=== PATIENT | female | born 1935 | race Caucasian/White ===

== ENCOUNTER → 2016-11-30 | Outpatient (CLI) | payer MEDICARE ==
[2016-11-30 16:37] LABS: ALBUMIN 3.8 GM/DL (3.2-5.2); ALBUMIN/GLOBULIN RATIO 1.23 (1.00-1.93); ALKALINE PHOSPHATASE 91 U/L (45-117); ALT/SGPT 33 U/L (12-78); ANION GAP 11 MEQ/L (8-16); AST/SGOT 17 U/L (15-37); BILIRUBIN,TOTAL 0.4 MG/DL (0.2-1.0); BLOOD UREA NITROGEN 25 MG/DL (7-18); CALCIUM LEVEL 8.8 MG/DL (8.8-10.2); CARBON DIOXIDE LEVEL 27 MEQ/L (21-32); CHLORIDE LEVEL 105 MEQ/L (98-107); CREATININE FOR GFR 0.87 MG/DL (0.55-1.02); GLOMERULAR FILTRATION RATE > 60.0 (>39); GLUCOSE, FASTING 106 MG/DL (83-110); POTASSIUM SERUM 4.3 MEQ/L (3.5-5.1); SODIUM LEVEL 143 MEQ/L (136-145); TOTAL PROTEIN 6.9 GM/DL (6.4-8.2)
--- NOTE | 2016-11-30 21:31 | REP ---
Clinical: Preoperative assessment . Comparison: None . Technique: PA and lateral. Findings: The mediastinum and cardiac silhouette are normal. The lung dowd are clear and without acute consolidation, effusion, or pneumothorax. The skeletal structures are intact and normal. Impression: 1. No acute cardiopulmonary process. Signed by Juwan Garner MD 11/30/2016 09:22 P
--- NOTE | 2016-12-01 17:24 | ECGEPIP ---
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
== END ==
LOC: M LAB 15:08
PROVIDERS: ATTEND Ophthalmology
DX: Z01.818 Encounter for other preprocedural examination (principal); H25.12 Age-related nuclear cataract, left eye

== ENCOUNTER → 2016-12-22 | Day surgery (SDC) | payer MEDICARE ==
[~2016-12-22] VITALS: Ht 152.4 cm; Wt 68.0 kg
[~2016-12-22] MED LIST: ACETYLCHOLINE OPHTH SOLN 1% 2ML As Ordered ONE; ACETYLCHOLINE OPHTH SOLN 1% 2ML XX ONE; ALIG4CAP PO; ASPI81TA85 PO; BALANCED SALT IRRIGATION SOL 500ML GLASS BOTTLE (FOR OR EYE COMPOUND) IR ONE; BALANCED SALT IRRIGATION SOLUTION 500ML BAG (FOR OR EYE MACHINE) As Ordered ONE; CALCCHW8 PO; CEFUROXIME 1MG/0.1ML INTRACAMERAL INJ As Ordered ONE; CLAR10CA3 PO; COLA100C PO; FLUN25SP; GLUC500C5 PO; HEALON DUET (HEALON 10MG/ML 0.55ML & HEALON ENDOCOAT 30MG/ML 0.85ML) As Ordered ONE; HEALON DUET (HEALON 10MG/ML 0.55ML & HEALON ENDOCOAT 30MG/ML 0.85ML) XX ONE; LEVO88TA3 PO; LIDOCAINE 0.75%/EPINEPHRINE 0.025% IN BSS 1ML SYR INTRACAMERAL (OR ONLY) As Ordered ONE; LIDOCAINE 0.75%/EPINEPHRINE 0.025% IN BSS 1ML SYR INTRACAMERAL (OR ONLY) XX ONE; LIDOCAINE 4% INJ 5 ML AMP As Ordered ONE; LIDOCAINE 4% INJ 5 ML AMP XX ONE; MIDAZOLAM INJ 2 MG/2 ML VIAL (J2250) As Ordered ONE; MULTCAP8 PO; OFLOXACIN 0.3 % (OCUFLOX) OPTH SOL 5ML OS ONE; OMEP40CA2 PO; OXYB5TA PO; PHENYLEPHRINE 2.5% OPHTH SOL 2ML OS ONE; POVIDONE-IODINE 5% OPHTH PREP SOL 30ML As Ordered ONE; PROPARACAINE 0.5% OPHTH SOL 15ML OS ONE; REST0.05 OP; SIMV40TA2 PO; SYST1SOL OD; TIMO0.254 OP; TOBRADEX OPHTH OINT 3.5 GM As Ordered ONE; TOBRADEX OPHTH OINT 3.5 GM XX ONE; TROPICAMIDE 1% OPHTH SOLN 2 ML OS ONE; fentaNYL 100 MCG/2 ML INJECTION (J3010) As Ordered ONE
[2016-12-22 12:30] VITALS: BP 136/71
--- NOTE | 2016-12-23 12:01 | RO ---
DATE OF PROCEDURE: 12/22/2016 PREOPERATIVE DIAGNOSIS: Visually significant nuclear sclerotic cataract left eye. POSTOPERATIVE DIAGNOSIS: Visually significant nuclear sclerotic cataract left eye. PROCEDURE: Cataract extraction with use of phacoemulsification and placement of intraocular lens ZCB00, 20.5 diopters, left eye. SURGEON: Dayron Marquez DO REAL ESTATE RECRUITER: ANESTHESIA: Local with monitored anesthesia care (MAC). COMPLICATIONS: None. POSTOPERATIVE CONDITION: Stable. INDICATION FOR SURGERY: Blurred vision left eye affecting patient's activities of daily living. DESCRIPTION OF PROCEDURE: The patient was seen in the preoperative area and properly identified. The correct operative eye was identified and marked. Attention was turned to that eye. The patient received topical antibiotics in the preoperative area. The patient then received topical dilating drops consisting of tropicamide and phenylephrine. The patient was then transferred to the operating room. The correct side was reidentified. The patient received topical anesthetics and antibiotics on the surface of the eye. The eye was prepped and draped in a sterile fashion. The upper and lower eyelids were isolated with Tegaderm tape, and the lids were held open with an adjustable speculum. Using a sideport blade, a paracentesis incision was made. Intraocular preservative-free lidocaine was then injected into the anterior chamber. Viscoelastic was then injected into the anterior chamber through the paracentesis. Using a 2.65 mm sharp-tipped keratome, the anterior chamber was entered via a temporal clear corneal incision. A continuous curvilinear capsulorrhexis was created with the aid of a 26-gauge cystotome and Utrata forceps. Hydrodissection was performed with balanced salt solution (BSS) on a blunt cannula until the nucleus was freely mobile. The crystalline lens was phacoemulsified and aspirated. Additional cohesive viscoelastic was placed into the capsular bag to deepen it. A ZCB00 20.5 diopters lens was placed into the capsular bag and confirmed by visualizing the continuous curvilinear capsulorrhexis. Additional irrigation and aspiration was used to remove cortical material and remaining viscoelastic. The clear corneal incision was hydrated with BSS on a blunt cannula. The lens was well positioned. The incisions were then tested for leaks and found to be negative. The eye was then palpated for appropriate pressure and adjusted accordingly with BSS. The eyelid speculum was then carefully removed. Tobradex ointment was placed in the eye. An eye patch and shield were then secured over the eye. The patient tolerated the procedure well and was discharged to the recovery unit in a stable condition. TYRELL
== END | disposition home or self-care (01) ==
LOC: M SDC 08:54
PROVIDERS: ATTEND Ophthalmology
DX: H25.12 Age-related nuclear cataract, left eye (principal); E78.5 Hyperlipidemia, unspecified; E03.9 Hypothyroidism, unspecified; Z79.899 Other long term (current) drug therapy; Z79.82 Long term (current) use of aspirin; Z88.0 Allergy status to penicillin; Z88.2 Allergy status to sulfonamides; Z88.8 Allergy status to other drugs, medicaments and biological substances
CPT/HCPCS: 66984; J2250; J3010; V2632

== ENCOUNTER → 2017-01-13 | Outpatient (CLI) | payer MEDICARE ==
[~2017-01-13] MED LIST changes: -ACETYLCHOLINE OPHTH SOLN 1% 2ML As Ordered ONE; -ACETYLCHOLINE OPHTH SOLN 1% 2ML XX ONE; -BALANCED SALT IRRIGATION SOL 500ML GLASS BOTTLE (FOR OR EYE COMPOUND) IR ONE; -BALANCED SALT IRRIGATION SOLUTION 500ML BAG (FOR OR EYE MACHINE) As Ordered ONE; -CEFUROXIME 1MG/0.1ML INTRACAMERAL INJ As Ordered ONE; -HEALON DUET (HEALON 10MG/ML 0.55ML & HEALON ENDOCOAT 30MG/ML 0.85ML) As Ordered ONE; -HEALON DUET (HEALON 10MG/ML 0.55ML & HEALON ENDOCOAT 30MG/ML 0.85ML) XX ONE; -LIDOCAINE 0.75%/EPINEPHRINE 0.025% IN BSS 1ML SYR INTRACAMERAL (OR ONLY) As Ordered ONE; -LIDOCAINE 0.75%/EPINEPHRINE 0.025% IN BSS 1ML SYR INTRACAMERAL (OR ONLY) XX ONE; -LIDOCAINE 4% INJ 5 ML AMP As Ordered ONE; -LIDOCAINE 4% INJ 5 ML AMP XX ONE; -MIDAZOLAM INJ 2 MG/2 ML VIAL (J2250) As Ordered ONE; -OFLOXACIN 0.3 % (OCUFLOX) OPTH SOL 5ML OS ONE; -PHENYLEPHRINE 2.5% OPHTH SOL 2ML OS ONE; -POVIDONE-IODINE 5% OPHTH PREP SOL 30ML As Ordered ONE; -PROPARACAINE 0.5% OPHTH SOL 15ML OS ONE; -TOBRADEX OPHTH OINT 3.5 GM As Ordered ONE; -TOBRADEX OPHTH OINT 3.5 GM XX ONE; -TROPICAMIDE 1% OPHTH SOLN 2 ML OS ONE; -fentaNYL 100 MCG/2 ML INJECTION (J3010) As Ordered ONE
[2017-01-13 19:41] LABS: BASO # 0.1 K/mm3 (0.0-0.2); BASO % 0.9 % (0.0-1.0); EOS # 0.2 K/mm3 (0.0-0.50); EOS % 3.5 % (0.0-3.0); LYMPH % 31.3 % (24.0-44.0); MEAN CORPUSCULAR HEMOGLOBIN 30.4 pg (27.0-33.0); MEAN CORPUSCULAR HGB CONC 32.3 g/dl (32.0-36.5); MONO # 0.5 K/mm3 (0.0-0.8); MONO % 7.5 % (0.0-5.0); NEUTROPHILS # 3.3 K/mm3 (1.8-7.7); NEUTROPHILS % 52.2 % (36.0-66.0); RED CELL DISTRIBUTION WIDTH 13.1 % (11.5-14.5); WHITE BLOOD COUNT 6.4 K/mm3 (4.0-10.0)
[2017-01-13 20:25] LABS: IMMUNOGLOBULIN G 663 MG/DL (681-1648); IMMUNOGLOBULIN M 46.8 MG/DL (40-230)
[2017-01-13 20:49] LABS: IMMUNOGLOBULIN E 10.5 IU/ML (<100)
== END ==
LOC: M SMT 15:26
PROVIDERS: ATTEND Allergy & Immunology Allergy
DX: D84.9 Immunodeficiency, unspecified (principal)

== ENCOUNTER 2017-10-28 12:57 | Emergency (ER) | payer MEDICARE ==
[~2017-10-28] VITALS: Ht 154.9 cm; Wt 69.1 kg
[~2017-10-28 12:57] MED LIST changes: -COLA100C PO; +COLA100C5 PO; -OXYB5TA PO; +OXYB5TAB10 PO
[2017-10-28 13:05] VITALS: BP 148/67
[2017-10-28] MEDS ORDERED: AZEL1SPR3 (13:12)
--- NOTE | 2017-10-28 15:04 | REP ---
RIGHT LOWER EXTREMITY DUPLEX VEINS: HISTORY: Swelling. There are no filling defects in the deep venous system. The deep venous system is patent. IMPRESSION: There is no deep venous thrombosis. Signed by Michael Conway MD 10/28/2017 03:32 P
== END 2017-10-28 15:21 | disposition home or self-care (01) ==
LOC: M ED 12:57
DX: I80.9 Phlebitis and thrombophlebitis of unspecified site (principal); E03.9 Hypothyroidism, unspecified; Z79.82 Long term (current) use of aspirin; Z79.899 Other long term (current) drug therapy; Z88.1 Allergy status to other antibiotic agents; Z88.2 Allergy status to sulfonamides; Z88.8 Allergy status to other drugs, medicaments and biological substances

== ENCOUNTER → 2018-01-18 | Outpatient (REF) | payer MEDICARE | LOC: M LAB REF 16:34 | DX: J33.1 Polypoid sinus degeneration (principal) | CPT/HCPCS: 87070 ==

== ENCOUNTER → 2018-04-10 | Outpatient (REF) | payer MEDICARE | LOC: M LAB REF 16:37 | DX: R21 Rash and other nonspecific skin eruption (principal) | CPT/HCPCS: 87186 ==

== ENCOUNTER → 2019-02-21 | Outpatient (CLI) | payer MEDICARE ==
[~2019-02-21] MED LIST changes: +AZEL1SPR3; +TIMO0.2529 OP; -TIMO0.254 OP
--- NOTE | 2019-02-21 15:22 | REP ---
MAXILLOFACIAL CT WITHOUT CONTRAST: HISTORY: Chronic pansinusitis. COMPARISON: 04/04/2018 The patient is status post bilateral uncinectomy, partial ethmoidectomy, left middle nasal turbinectomy and bilateral Alcantar-Shankar procedure. Defects are present in the medial fink of the orbits , superomedial roof of the left orbit and anterior wall of the left sphenoid sinus. The cribriform plate and optic canals are intact. The carotid canals form a segment of the posterolateral fink of the sphenoid sinus. The sphenoid sinus septum inserts into the left internal carotid canal wall. Soft tissue densities are present in the nasal passage consistent with polyps. IMPRESSION: 1. Postoperative change as described above. 2. Sinus mucosal thickening as described above. Electronically Signed by Michael Conway MD 02/21/2019 03:26 P
== END ==
LOC: M RAD 14:25
PROVIDERS: ATTEND Otolaryngology
DX: J32.4 Chronic pansinusitis (principal)

== ENCOUNTER → 2019-03-11 | Outpatient (REF) | payer MEDICARE | LOC: M LAB REF 16:04 | PROVIDERS: ATTEND Otolaryngology | DX: J32.4 Chronic pansinusitis (principal) ==

== ENCOUNTER → 2019-03-25 | Outpatient (CLI) | payer MEDICARE ==
[2019-03-25 18:56] LABS: IMMUNOGLOBULIN G 690 MG/DL (681-1648); IMMUNOGLOBULIN M 44.1 MG/DL (40-230)
[2019-03-25 18:57] LABS: RUBELLA IgG QUALITATIVE IMMUNE (IMMUNE)
[2019-03-29 00:06] LABS: ANTI TETANUS ANTIBODY <0.10 IU/mL (<0.10)
== END ==
LOC: M SMT 15:50
PROVIDERS: ATTEND Allergy & Immunology Allergy
DX: D84.9 Immunodeficiency, unspecified (principal); J32.9 Chronic sinusitis, unspecified; J33.9 Nasal polyp, unspecified

== ENCOUNTER → 2019-05-16 | Outpatient (CLI) | payer MEDICARE ==
[2019-05-23 00:07] LABS: STREP PNEUMO TYPE 1 >22.7 ug/mL (>1.3); STREP PNEUMO TYPE 12F 0.3 ug/mL (>1.3); STREP PNEUMO TYPE 14 >21.7 ug/mL (>1.3); STREP PNEUMO TYPE 18C >14.7 ug/mL (>1.3); STREP PNEUMO TYPE 19A >11.6 ug/mL (>1.3); STREP PNEUMO TYPE 19F 2.4 ug/mL (>1.3); STREP PNEUMO TYPE 23F 3.1 ug/mL (>1.3); STREP PNEUMO TYPE 3 >9.6 ug/mL (>1.3); STREP PNEUMO TYPE 4 0.5 ug/mL (>1.3); STREP PNEUMO TYPE 6B 2.4 ug/mL (>1.3); STREP PNEUMO TYPE 7F >16.9 ug/mL (>1.3); STREP PNEUMO TYPE 9N 4.3 ug/mL (>1.3); STREP PNEUMO TYPE 9V >7.8 ug/mL (>1.3)
== END ==
LOC: M SMT 10:41
PROVIDERS: ATTEND Allergy & Immunology Allergy
DX: J32.9 Chronic sinusitis, unspecified (principal); D84.9 Immunodeficiency, unspecified

== ENCOUNTER → 2019-10-14 | Outpatient (REF) | payer MEDICARE ==
[~2019-10-14] MED LIST changes: -OMEP40CA2 PO; +OMEP40CA97 PO
== END ==
LOC: M LAB REF 15:34
PROVIDERS: ATTEND Otolaryngology
DX: J32.4 Chronic pansinusitis (principal)

== ENCOUNTER → 2019-12-23 | Outpatient (REF) | payer MEDICARE ==
[~2019-12-23] MED LIST changes: -SIMV40TA2 PO; +SIMV40TA20 PO
[2019-12-23 18:15] LABS: C REACTIVE PROTEIN QUANTITATIV 9.24 MG/DL (0.00-0.30); RHEUMATOID FACTOR QUANT < 10.0 IU/ML (<15.0)
[2019-12-25 14:07] LABS: ANTINUCLEAR ANTIBODIES DIRECT Negative (Negative)
== END ==
LOC: M LAB REF 17:13
PROVIDERS: ATTEND Nurse Practitioner Adult Health
DX: M79.10 Myalgia, unspecified site (principal)

== ENCOUNTER → 2020-02-17 | Outpatient (REF) | payer MEDICARE ==
[2020-02-17 18:22] LABS: C REACTIVE PROTEIN QUANTITATIV 0.47 MG/DL (0.00-0.30)
[2020-02-17 18:33] LABS: VITAMIN B12 LEVEL > 2000 PG/ML (247-911)
== END ==
LOC: M LAB REF 16:26
PROVIDERS: ATTEND Internal Medicine
DX: M79.10 Myalgia, unspecified site (principal)

== ENCOUNTER → 2020-03-05 | Outpatient (REF) | payer MEDICARE | LOC: M LAB REF 16:20 | PROVIDERS: ATTEND Internal Medicine | DX: M35.3 Polymyalgia rheumatica (principal) ==

== ENCOUNTER → 2020-03-17 | Outpatient (REF) | payer MEDICARE | LOC: M LAB REF 14:46 | PROVIDERS: ATTEND Otolaryngology | DX: J32.4 Chronic pansinusitis (principal) ==

== ENCOUNTER → 2020-03-19 | Outpatient (REF) | payer MEDICARE | LOC: M LAB REF 12:07 | PROVIDERS: ATTEND Internal Medicine | DX: M35.3 Polymyalgia rheumatica (principal) ==

== ENCOUNTER → 2020-03-30 | Outpatient (REF) | payer MEDICARE | LOC: M LAB REF 16:17 | PROVIDERS: ATTEND Internal Medicine | DX: M35.3 Polymyalgia rheumatica (principal) ==

== ENCOUNTER → 2020-04-16 | Outpatient (REF) | payer MEDICARE | LOC: M LAB REF 16:18 | PROVIDERS: ATTEND Internal Medicine | DX: M35.3 Polymyalgia rheumatica (principal) ==

== ENCOUNTER → 2020-04-29 | Outpatient (REF) | payer MEDICARE | LOC: M LAB REF 12:10 | PROVIDERS: ATTEND Internal Medicine | DX: M35.3 Polymyalgia rheumatica (principal) ==

== ENCOUNTER → 2020-05-14 | Outpatient (REF) | payer MEDICARE | LOC: M LAB REF 16:16 | PROVIDERS: ATTEND Internal Medicine | DX: M35.3 Polymyalgia rheumatica (principal) ==

== ENCOUNTER → 2020-05-28 | Outpatient (REF) | payer MEDICARE | LOC: M LAB REF 11:25 | PROVIDERS: ATTEND Internal Medicine | DX: M35.3 Polymyalgia rheumatica (principal) ==

== ENCOUNTER → 2020-06-30 | Outpatient (REF) | payer MEDICARE ==
[~2020-06-30] MED LIST changes: -ASPI81TA85 PO; +ASPI81TA86 PO
== END ==
LOC: M LAB REF 08:30
PROVIDERS: ATTEND Internal Medicine
DX: M35.3 Polymyalgia rheumatica (principal)

== ENCOUNTER → 2020-07-16 | Outpatient (REF) | payer MEDICARE | LOC: M LAB REF 17:47 | PROVIDERS: ATTEND Internal Medicine | DX: M35.3 Polymyalgia rheumatica (principal) ==

== ENCOUNTER → 2020-07-30 | Outpatient (REF) | payer MEDICARE | LOC: M LAB REF 09:17 | PROVIDERS: ATTEND Internal Medicine | DX: M35.3 Polymyalgia rheumatica (principal) ==

== ENCOUNTER → 2020-08-14 | Outpatient (CLI) | payer MEDICARE ==
--- NOTE | 2020-08-26 11:00 | REP ---
RIGHT HAND SERIES: 4-VIEWS HISTORY: Right hand and wrist pain. Pain at the base of the thumb radiating into the thumb. FINDINGS: Four views of the right hand show mild diffuse osteopenia. No fracture or bony destructive lesion is seen. There is mild osteoarthritic spurring and sclerosis at the first MCP and first RETIREMENT joints. There is mild spurring at the IP joint of the thumb and at the DIP joints of the index, long, and ring fingers. Soft tissues are unremarkable. IMPRESSION: Mild osteoarthritic changes. Diffuse osteopenia. No acute bony abnormality. MTDD
--- NOTE | 2020-08-26 11:01 | REP ---
RIGHT WRIST SERIES: 4-VIEWS HISTORY: Right hand and wrist pain. FINDINGS: Four views of the right wrist demonstrate diffuse osteopenia. There is mild osteoarthritic spurring at the first carpometacarpal articulation. No erosive change is seen. Bones, joints, and soft tissues of the wrist are otherwise unremarkable. IMPRESSION: Diffuse osteopenia and mild first carpometacarpal (CMC) joint spurring. No acute bony abnormality. MTDD
== END ==
LOC: M WUC 12:16
PROVIDERS: ATTEND Internal Medicine
DX: M79.641 Pain in right hand (principal); M25.531 Pain in right wrist

== ENCOUNTER → 2020-08-26 | Outpatient (REF) | payer MEDICARE | LOC: M LAB REF 12:41 | PROVIDERS: ATTEND Internal Medicine | DX: M35.3 Polymyalgia rheumatica (principal) ==

== ENCOUNTER → 2020-10-27 | Outpatient (REF) | payer MEDICARE | LOC: M LAB REF 16:23 | PROVIDERS: ATTEND Nurse Practitioner Adult Health | DX: M35.3 Polymyalgia rheumatica (principal) ==

== ENCOUNTER → 2020-11-10 | Outpatient (REF) | payer MEDICARE | LOC: M LAB REF 16:14 | PROVIDERS: ATTEND Internal Medicine | DX: M35.3 Polymyalgia rheumatica (principal) ==

== ENCOUNTER → 2020-12-03 | Outpatient (REF) | payer MEDICARE | LOC: M LAB REF 12:19 | PROVIDERS: ATTEND Internal Medicine | DX: M35.3 Polymyalgia rheumatica (principal) ==

== ENCOUNTER → 2020-12-22 | Outpatient (REF) | payer MEDICARE | LOC: M LAB REF 16:18 | PROVIDERS: ATTEND Internal Medicine | DX: M35.3 Polymyalgia rheumatica (principal) ==

== ENCOUNTER → 2021-01-05 | Outpatient (REF) | payer MEDICARE | LOC: M LAB REF 16:19 | PROVIDERS: ATTEND Internal Medicine | DX: M35.3 Polymyalgia rheumatica (principal) ==

== ENCOUNTER → 2021-01-19 | Outpatient (REF) | payer MEDICARE | LOC: M LAB REF 13:30 | PROVIDERS: ATTEND Internal Medicine | DX: M35.3 Polymyalgia rheumatica (principal) ==

== ENCOUNTER → 2021-01-29 | Outpatient (REF) | payer MEDICARE | LOC: M LAB REF 15:57 | PROVIDERS: ATTEND Internal Medicine | DX: M35.3 Polymyalgia rheumatica (principal) ==

== ENCOUNTER → 2021-02-16 | Outpatient (REF) | payer MEDICARE ==
[2021-02-16 18:13] LABS: RHEUMATOID FACTOR QUANT < 10.0 IU/ML (<15.0)
== END ==
LOC: M LAB REF 16:27
PROVIDERS: ATTEND Internal Medicine
DX: M35.3 Polymyalgia rheumatica (principal)

== ENCOUNTER → 2021-03-02 | Outpatient (REF) | payer MEDICARE | LOC: M LAB REF 12:48 | PROVIDERS: ATTEND Internal Medicine | DX: M35.3 Polymyalgia rheumatica (principal) ==

== ENCOUNTER → 2021-03-29 | Outpatient (REF) | payer MEDICARE | LOC: M LAB REF 16:31 | PROVIDERS: ATTEND Internal Medicine | DX: M35.3 Polymyalgia rheumatica (principal) ==

== ENCOUNTER → 2021-04-19 | Outpatient (CLI) | payer MEDICARE ==
--- NOTE | 2021-04-19 15:24 | REP ---
INDICATION: RADICULOPATHY RT ARM R/O SPINAL STENOSIS, R/O DVT /MRI AFTER COMPARISON: None. TECHNIQUE: Andre scale and color Doppler evaluation right upper extremity using linear high frequency transducer. FINDINGS: Ultrasound examination of the right upper extremity including jugular, subclavian, axillary, brachial, basilic and cephalic veins appear patent and without thrombosis. IMPRESSION: No evidence for deep venous thrombosis right upper extremity. <Electronically signed by Juwan Garner > 04/19/21 [id number]
--- NOTE | 2021-04-19 16:13 | REPVR ---
PROCEDURE INFORMATION: Exam: MR Cervical Spine Without Contrast Exam date and time: 04/19/2021 2:30 PM Age: 85 years old Clinical indication: Radicular pain (radiculopathy); Cervical region; Additional info: Radiculopathy RT arm R/O spinal stenosis, R/O dvt /us before TECHNIQUE: Imaging protocol: Multiplanar magnetic resonance images of the cervical spine without contrast. COMPARISON: No relevant prior studies available. FINDINGS: Cervical vertebral body heights are intact. The dens is intact. No abnormal marrow signal. No cord compression, expansion, or abnormal cord signal. Visualized structures of the posterior fossa are unremarkable. Soft tissues are unremarkable. C2-C3: No significant canal or foraminal narrowing. C3-C4: Posterior disc protrusion and uncovertebral spurring cause mild canal narrowing and moderate bilateral foraminal narrowing. C4-C5: Posterior disc protrusion and uncovertebral spurring cause moderate canal narrowing with effacement of the anterior thecal sac. Severe right and moderate left foraminal narrowing. C5-C6: Posterior disc protrusion and uncovertebral spurring cause moderate canal narrowing with effacement of the anterior thecal sac. Severe left and moderate right foraminal narrowing. C6-C7: Posterior disc protrusion and uncovertebral spurring cause mild canal narrowing with mild right and moderate to severe left foraminal narrowing C7-T1: No significant canal or foraminal narrowing. 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 Electronically signed by: Laureano Hart On 04/19/2021 16:13:22 PM
== END ==
LOC: M RAD 14:22
PROVIDERS: ATTEND Orthopaedic Surgery
DX: M50.30 Other cervical disc degeneration, unspecified cervical region (principal); M79.601 Pain in right arm

== ENCOUNTER → 2021-04-27 | Outpatient (REF) | payer MEDICARE | LOC: M LAB REF 17:11 | PROVIDERS: ATTEND Internal Medicine | DX: M35.3 Polymyalgia rheumatica (principal) ==

== ENCOUNTER → 2021-10-25 | Outpatient (REF) | payer MEDICARE ==
[~2021-10-25] MED LIST changes: +OMEP40CA4 PO; -OMEP40CA97 PO
== END ==
LOC: M LAB REF 16:12
PROVIDERS: ATTEND Internal Medicine
DX: M35.3 Polymyalgia rheumatica (principal)

== ENCOUNTER → 2022-03-30 | Outpatient (REF) | payer MEDICARE | LOC: M LAB REF 16:48 | PROVIDERS: ATTEND Physician Assistant Medical | DX: M35.3 Polymyalgia rheumatica (principal) ==

== ENCOUNTER → 2022-05-02 | Outpatient (REF) | payer MEDICARE | LOC: M LAB REF 16:30 | PROVIDERS: ATTEND Internal Medicine | DX: M15.9 Polyosteoarthritis, unspecified (principal); M35.3 Polymyalgia rheumatica ==

== ENCOUNTER → 2022-05-16 | Outpatient (REF) | payer MEDICARE | LOC: M LAB REF 16:05 | PROVIDERS: ATTEND Internal Medicine | DX: M15.9 Polyosteoarthritis, unspecified (principal); M35.3 Polymyalgia rheumatica ==

== ENCOUNTER → 2022-06-02 | Outpatient (REF) | payer MEDICARE | LOC: M LAB REF 12:19 | PROVIDERS: ATTEND Internal Medicine | DX: M15.9 Polyosteoarthritis, unspecified (principal); M35.3 Polymyalgia rheumatica ==

== ENCOUNTER → 2022-06-17 | Outpatient (REF) | payer MEDICARE | LOC: M LAB REF 16:22 | PROVIDERS: ATTEND Internal Medicine | DX: M15.9 Polyosteoarthritis, unspecified (principal) ==

== ENCOUNTER → 2022-07-19 | Outpatient (CLI) | payer MEDICARE | LOC: M WHC 08:59 | PROVIDERS: ATTEND Internal Medicine | DX: M81.0 Age-related osteoporosis without current pathological fracture (principal) ==

== ENCOUNTER → 2022-10-06 | Outpatient (REF) | payer MEDICARE | LOC: M LAB REF 12:17 | PROVIDERS: ATTEND Internal Medicine | DX: M35.3 Polymyalgia rheumatica (principal); M15.9 Polyosteoarthritis, unspecified ==

== ENCOUNTER → 2022-10-11 | Outpatient (REF) | payer MEDICARE ==
[2022-10-11 22:42] LABS: IRON (FE) 27 UG/DL (50-170); PERCENT SATURATION 6.1 % (13.2-45.0); TOTAL IRON BINDING CAPACITY 446 UG/DL (250-425); VITAMIN B12 LEVEL 666 PG/ML (232-1245)
[2022-10-11 22:56] LABS: FOLATE > 24.0 NG/ML (>3.0)
== END ==
LOC: M LAB REF 16:51
PROVIDERS: ATTEND Internal Medicine
DX: D64.9 Anemia, unspecified (principal)

== ENCOUNTER → 2022-11-09 | Outpatient (CLI) | payer MEDICARE | LOC: M WHC 11:31 | PROVIDERS: ATTEND Internal Medicine | DX: Z12.31 Encounter for screening mammogram for malignant neoplasm of breast (principal); Z80.3 Family history of malignant neoplasm of breast ==

== ENCOUNTER → 2023-03-21 | Outpatient (REF) | payer MEDICARE ==
[2023-03-21 17:26] LABS: HEMATOCRIT 44.6 % (36.0-47.0)
[2023-03-21 17:47] LABS: PERCENT SATURATION 30.3 % (13.2-45.0)
[2023-03-21 17:50] LABS: FERRITIN 49.3 NG/ML (7.3-270.7)
== END ==
LOC: M LAB REF 16:28
PROVIDERS: ATTEND Nurse Practitioner Adult Health
DX: D64.9 Anemia, unspecified (principal)

== ENCOUNTER → 2023-05-16 | Outpatient (REF) | payer MEDICARE ==
[2023-05-16 17:45] LABS: VITAMIN B12 LEVEL 1450 PG/ML (211-911)
[2023-05-16 17:46] LABS: FOLATE > 24.0 NG/ML (>5.4)
== END ==
LOC: M LAB REF 16:37
PROVIDERS: ATTEND Internal Medicine
DX: G60.9 Hereditary and idiopathic neuropathy, unspecified (principal)

== ENCOUNTER → 2023-12-01 | Outpatient (CLI) | payer MEDICARE ==
[~2023-12-01] MED LIST changes: -OXYB5TAB10 PO; +OXYB5TAB11 PO
== END ==
LOC: M WHC 10:08
PROVIDERS: ATTEND Internal Medicine
DX: Z12.31 Encounter for screening mammogram for malignant neoplasm of breast (principal)

== ENCOUNTER → 2024-05-20 | Outpatient (CLI) | payer MEDICARE ==
[~2024-05-20] MED LIST changes: -OXYB5TAB11 PO; +OXYB5TAB14 PO
== END ==
LOC: M RAD 17:00
PROVIDERS: ATTEND Nurse Practitioner Adult Health
DX: M16.0 Bilateral primary osteoarthritis of hip (principal); M47.896 Other spondylosis, lumbar region

== ENCOUNTER → 2024-07-13 | Outpatient (CLI) | payer MEDICARE | LOC: M RAD 10:29 | PROVIDERS: ATTEND Physician Assistant | DX: M51.36 Other intervertebral disc degeneration, lumbar region (principal) ==

== ENCOUNTER → 2024-08-28 | Outpatient (CLI) | payer MEDICARE ==
[2024-08-28 16:58] LABS: PLATELET COUNT, AUTOMATED 231 10^3/uL (150-450)
[2024-08-28 17:15] LABS: INR 1.08; PARTIAL THROMBOPLASTIN TIME 27.2 SECONDS (24.8-34.2); PROTHROMBIN TIME 13.7 SECONDS (12.5-14.5)
== END ==
LOC: M PLALAB 14:20
PROVIDERS: ATTEND Physician Assistant
DX: Z01.818 Encounter for other preprocedural examination (principal)

== ENCOUNTER → 2025-01-15 | Outpatient (CLI) | payer MEDICARE ==
[~2025-01-15] MED LIST changes: -ALIG4CAP PO; +ALIG4CAP3 PO
== END ==
LOC: M WHC 12:33
PROVIDERS: ATTEND Internal Medicine
DX: Z12.31 Encounter for screening mammogram for malignant neoplasm of breast (principal); Z13.820 Encounter for screening for osteoporosis; M81.0 Age-related osteoporosis without current pathological fracture; R92.323 Mammographic fibroglandular density, bilateral breasts; N63.41 Unspecified lump in right breast, subareolar; M85.852 Other specified disorders of bone density and structure, left thigh; M85.851 Other specified disorders of bone density and structure, right thigh

== ENCOUNTER → 2025-02-10 | Outpatient (CLI) | payer MEDICARE | LOC: M WHC 13:56 | PROVIDERS: ATTEND Internal Medicine | DX: R92.2 Inconclusive mammogram (principal) | CPT/HCPCS: 76642; 77065; G0279 ==